=== PATIENT | female | born 1995 | race Caucasian/White ===

== ENCOUNTER 2016-08-12 06:46 | Day surgery (SDC) | payer MEDICAID, OTHER ==
[~2016-08-12 06:46] MED LIST: Clindamycin Phosphate in D5W 600 MG in Premix Bag 1 BAG IV ONE; Lactated Ringers 1,000 ML IV SCH
[2016-08-12] MEDS ORDERED: Bupivacaine 0.25%/EPINEPHrine 1:200,000 10 ML SDV ONE (07:15)
--- NOTE | 2016-08-12 07:20 | PCM.PREANE ---
Preanesthetic Assessment - Anesthesia/Transfusion/Family Hx Anesthesia History: Prior Anesthesia Without Reaction Family History of Anesthesia Reaction: No Transfusion History: No Prior Transfusion(s) Intubation History: Unknown - Review of Systems General: No Symptoms Pulmonary: No Symptoms Cardiovascular: No Symptoms Gastrointestinal: No symptoms Neurological: No Symptoms Other: Reports: None - Physical Assessment Height: 1.7 m Weight: 120.202 kg ASA Class: 2 Mental Status: Alert & Oriented x3 Airway Class: Mallampati = 2 Dentition: Reports: Normal Dentition Thyro-Mental Finger Breadths: 3 Mouth Opening Finger Breadths: 3 ROM/Head Extension: Full Lungs: Clear to auscultation, Normal respiratory effort Cardiovascular: Regular Rate, Regular Rhythm, No Murmurs - Lab Values: Laboratory Last Values Urine HCG, Qual NEGATIVE (NEGATIVE) 08/12/16 06:52 - Allergies Allergies/Adverse Reactions: Allergies Allergy/AdvReac Type Severity Reaction Status Date / Time azithromycin [From Zithromax] Allergy Anaphylactic Verified 08/07/16 11:51 Shock - Blood Blood Available: No - Anesthesia Plan Pre-Op Medication Ordered: None - Acknowledgements Anesthesia Type Planned: General Anesthesia Pt an Appropriate Candidate for the Planned Anesthesia: Yes Alternatives and Risks of Anesthesia Discussed w Pt/Guardian: Yes Pt/Guardian Understands and Agrees with Anesthesia Plan: Yes PreAnesthesia Questionnaire HEENT History: Reports: Other (See Below) Other HEENT History: wears glasses Cardiovascular History: Reports: None Respiratory History: Reports: None Gastrointestinal History: Reports: None Genitourinary History: Reports: None STUDIO ASSOCIATE History: Reports: None Musculoskeletal History: Reports: Fracture Other Musculoskeletal History: hx of fx left wrist Neurological History: Reports: Other (See Below) Other Neuro History: hx of motion sickness Psychiatric History: Reports: None Endocrine/Metabolic History: Reports: Obesity/BMI 30+ Hematologic History: Reports: None Immunologic History: Reports: None Oncologic (Cancer) History: Reports: None Dermatologic History: Reports: Other (See Below) Other Dermatologic History: recurrent hydradenitis suppurativa - Past Surgical History Head Surgeries/Procedures: Reports: None HEENT Surgical History: Reports: None Cardiovascular Surgical History: Reports: None Respiratory Surgical History: Reports: None GI Surgical History: Reports: None Female Surgical History: Reports: None Endocrine Surgical History: Reports: None Neurological Surgical History: Reports: None Musculoskeletal Surgical History: Reports: Carpal Tunnel (right) Oncologic Surgical History: Reports: None Dermatological Surgical History: Reports: None - SUBSTANCE USE Smoking Status *Q: Never Smoker Recreational Drug Use History: No - HOME MEDS Home Medications: Home Meds . [No Known Home Meds] 08/07/16 [History] - CURRENT (IN HOUSE) MEDS Current Meds: Current Medications Lactated Ringer's (Ringers, Lactated) 1,000 mls @ 125 mls/hr IV ASDIRECTED CE Discontinued Medications Bupivacaine HCl/Epinephrine Bitart (Marcaine 0.25%/Epinephrine 1:200,000) Confirm Administered Dose 30 ml .ROUTE .STK-MED ONE Stop: 08/12/16 07:16 Clindamycin Phosphate 600 mg/ (Premix) 50 mls @ 100 mls/hr IV ONETIME ONE Stop: 08/12/16 05:29
[2016-08-12] MEDS ORDERED: Ondansetron 4 MG/2 ML SDV ONE (07:23)
[2016-08-12] MEDS ORDERED: Lidocaine 2% 5 ML SDV ONE (07:23)
[2016-08-12] MEDS ORDERED: Propofol 200 MG/20 ML SDV ONE (07:23)
[2016-08-12] MEDS ORDERED: Midazolam 1 MG/ML 2 ML SDV ONE (07:23)
[2016-08-12] MEDS ORDERED: fentaNYL 250 MCG/5 ML SDV ONE (07:23)
[2016-08-12] MEDS ORDERED: Acetaminophen/oxyCODONE 325-10 MG Tab PO PRN (07:47)
[2016-08-12] MEDS ORDERED: fentaNYL 100 MCG/2 ML SDV IVPUSH PRN (08:06)
--- NOTE | 2016-08-12 09:19 | PCM.OPNOTE ---
- General Post-Op/Procedure Note Date of Surgery/Procedure: 08/12/16 Operative Procedure(s): excisional biopsy recurrent hidradenitis suppurativa L axilla, chest, L labia Findings: see dictation [id number] Pre Op Diagnosis: recurrent hidradenitis suppurativa Post-Op Diagnosis: Same Anesthesia Technique: General LMA Primary Surgeon: Sherif Murguia Pathology: sent Complications: None Condition: Good
--- NOTE | 2016-08-12 10:04 | PCM.POSTAN ---
POST ANESTHESIA ASSESSMENT - MENTAL STATUS Mental Status: oriented - RESPIRATORY Respiratory Status: respiratory rate WNL, airway patent - CARDIOVASCULAR CV Status: pulse rate WNL, blood pressure stable - GASTROINTESTINAL GI Status: no symptoms - PAIN Pain Score: 1 - POST OP HYDRATION Hydration Status: adequate & stable
--- NOTE | 2016-08-12 10:09 | PCM48HPAN ---
Post Anesthesia Note - EVALUATION WITHIN 48HRS OF ANESTHETIC Vital Signs in Normal Range: Yes Patient Participated in Evaluation: Yes Respiratory Function Stable: Yes Airway Patent: Yes Cardiovascular Function Stable: Yes Hydration Status Stable: Yes Pain Control Satisfactory: Yes Nausea and Vomiting Control Satisfactory: Yes Mental Status Recovered: Yes
[2016-08-12] MEDS ORDERED: Ondansetron 4 MG Tab.DIS PO ONE (11:44)
[2016-08-12 12:45] VITALS: BP 152/85
--- NOTE | 2016-08-13 07:41 | OR ---
SURGEON: Sherif Murguia MD DATE OF PROCEDURE: 08/12/2016 PREOPERATIVE DIAGNOSIS: Recurrent hidradenitis suppurativa. POSTOPERATIVE DIAGNOSIS: Recurrent hidradenitis suppurativa. PROCEDURE PERFORMED: Excision and biopsy. COMPLICATIONS: None. FINDINGS: The lateral chest, the medial chest, and the left labia majora has a very little drainage, but they do have drainage but not very horrendous, but axilla has clear purulent drainage. The medial chest is 3 x 1 cm and the lateral chest is 2 x 1 cm and labia majora is 6 x 2.5 cm, but axilla is 11 x 3 cm skin loss. DESCRIPTION OF PROCEDURE: The patient was taken to the operating room and placed in supine position. Upon induction of general endotracheal anesthesia, the patient's several areas were prepped and draped in a sterile fashion. The chest area has a medial and the lateral area that has disease and the left labia majora has disease and the left axilla has disease. The right axilla, we will leave it alone for the time being as the patient need to use at least one hand to do things. A time-out was being called. The patient was identified, procedure identified, and antibiotic given, and procedure was then started. Attention, 1st go to the medial chest area, it has disease, and it does have drainage but minimal. Area was excised 3 x 1 cm and because of the breast, we are pulling the surgical site in the R direction and makes the wound much much bigger, decided to put 2 stitches of 2-0 Ethilon to close it and then put a Wilton on it and the lateral chest is less problematic and posterior to about 2.1 cm skin loss and then I used one stitch of 2-0 Ethilon, closed it, and Niki to it, and then the third one is the left labia majora has very little drainage, clearly disease, and again is excised and Wilton it and closed it with one stitch of 2-0 Ethilon. Attention now turned to the left axilla, which is very extensive disease with active draining pus and the area was removed 11 x 3 cm and the area was packed with iodoform gauze 0.5 inch and followed with appropriate dressing. The patient was awakened, extubated, and transferred to recovery room in hemodynamically stable condition. Sponge count was correct prior to closing. The patient tolerated the procedure well. There were no intraoperative complications. Dr. Murguia was present throughout the procedure. CONNIE / SYLVAIN /[id number] MTDD
== END 2016-08-12 12:12 | disposition home or self-care (01) ==
LOC: MW.SDS 06:46
PROVIDERS: ATTEND Surgery
DX: L72.0 Epidermal cyst (principal); L98.499 Non-pressure chronic ulcer of skin of other sites with unspecified severity; I96 Gangrene, not elsewhere classified; L90.5 Scar conditions and fibrosis of skin; Z88.1 Allergy status to other antibiotic agents; Z98.890 Other specified postprocedural states; Z78.9 Other specified health status; E66.9 Obesity, unspecified
CPT/HCPCS: 11406; 81025; 87070; 87075; 87205; A9270; J2250; J2405; J3010; J7120; 00400; 87077; 87186; 88305; J2704

== ENCOUNTER 2016-08-14 22:35 | Emergency (ER) | payer MEDICAID, OTHER ==
[2016-08-14] MEDS ORDERED: HYDROmorphone 1 MG/ML Syringe ONE (23:17)
[2016-08-14] MEDS ORDERED: HYDROmorphone 2 MG/ML Syringe IVPUSH STA (23:21)
[2016-08-14] MEDS ORDERED: HYDROmorphone 2 MG/ML Syringe IM STA (23:25)
--- NOTE | 2016-08-14 23:34 | EDM.PDOC ---
ED HPI GENERAL MEDICAL PROBLEM - General Chief Complaint: General Stated Complaint: PAIN Time Seen by Provider: 08/14/16 22:41 - History of Present Illness INITIAL COMMENTS - FREE TEXT/NARRATIVE: HISTORY AND PHYSICAL: History of present illness: Patient's 20-year-old female is status surgery for left superative hidradenitis who presents with a concern of wound check and packing change she states has been quite uncomfortable she does have a doctor appointment tomorrow she is on antibiotics in the form of clindamycin and Vicodin no fever chills nausea vomiting or other complaints Review of systems: As per history of present illness and below otherwise all systems reviewed and negative. Past medical history: As per history of present illness and as reviewed below otherwise noncontributory. Surgical history: As per history of present illness and as reviewed below otherwise noncontributory. Social history: No reported history of drug or alcohol abuse. Family history: As per history of present illness and as reviewed below otherwise noncontributory. Physical exam: HEENT: Atraumatic, normocephalic, pupils reactive, negative for conjunctival pallor or scleral icterus, mucous membranes moist, throat clear, neck supple, nontender, trachea midline. Lungs: Clear to auscultation, breath sounds equal bilaterally, chest nontender. Heart: S1S2, regular, negative for clicks, rubs, or JVD. Abdomen: Soft, nondistended, nontender. Negative for masses or hepatosplenomegaly. Negative for costovertebral tenderness. Pelvis: Stable nontender. Genitourinary: Deferred. Rectal: Deferred. Extremities: Left axilla has with packing partially removed no significant discharge erythema mild tenderness to palpation. Neuro: Awake, alert, oriented. Cranial nerves II through XII unremarkable. Cerebellum unremarkable. Motor and sensory unremarkable throughout. Exam nonfocal. Diagnostics: None Therapeutics: #1 Dilaudid 1 mg IM #2 packing change with iodoform gauze Impression: #1 wound check with wound care and packing change Definitive disposition and diagnosis as appropriate pending reevaluation and review of above. Left Chest Pain Score (Numeric/FACES): 10 - Related Data Allergies Allergy/AdvReac Type Severity Reaction Status Date / Time azithromycin [From Zithromax] Allergy Anaphylactic Verified 08/14/16 22:53 Shock Home Meds: Home Meds Clindamycin HCl 08/14/16 [History] Hydrocodone/Acetaminophen [Vicodin 5-300 mg Tablet] 08/14/16 [History] Ondansetron HCl [Zofran] 08/14/16 [History] Past Medical History HEENT History: Reports: Other (See Below) Other HEENT History: wears glasses Cardiovascular History: Reports: None Respiratory History: Reports: None Gastrointestinal History: Reports: None Genitourinary History: Reports: None MANAGEMENT AND BUDGET ANALYST History: Reports: None Musculoskeletal History: Reports: Fracture Other Musculoskeletal History: hx of fx left wrist Neurological History: Reports: Other (See Below) Other Neuro History: hx of motion sickness Psychiatric History: Reports: Anxiety, Depression Endocrine/Metabolic History: Reports: Obesity/BMI 30+ Hematologic History: Reports: None Immunologic History: Reports: None Oncologic (Cancer) History: Reports: None Dermatologic History: Reports: Other (See Below) Other Dermatologic History: recurrent hydradenitis suppurativa - Past Surgical History Head Surgeries/Procedures: Reports: None HEENT Surgical History: Reports: None Cardiovascular Surgical History: Reports: None Respiratory Surgical History: Reports: None GI Surgical History: Reports: None Female Surgical History: Reports: None Endocrine Surgical History: Reports: None Neurological Surgical History: Reports: None Musculoskeletal Surgical History: Reports: Carpal Tunnel Oncologic Surgical History: Reports: None Dermatological Surgical History: Reports: Other (See Below) Social & Family History - Family History Family Medical History: Noncontributory - Tobacco Use Smoking Status *Q: Never Smoker - Caffeine Use Caffeine Use: Reports: Coffee - Recreational Drug Use Recreational Drug Use: No Drug Use in Last 12 Months: No ED ROS GENERAL - Review of Systems Review Of Systems: ROS reveals no pertinent complaints other than HPI. ED EXAM, GENERAL - Physical Exam Exam: See Below (See dictation) Course - Vital Signs Last Recorded V/S: Last Vital Signs Temp 38.1 C 08/14/16 22:53 Pulse 125 H 08/14/16 22:53 Resp 18 08/14/16 22:53 BP 152/92 H 08/14/16 22:53 Pulse Ox 97 08/14/16 22:53 - Orders/Labs/Meds Meds: Medications Discontinued Medications Generic Name Dose Route Start Last Admin Trade Name Freq PRN Reason Stop Dose Admin Hydromorphone HCl Confirm 08/14/16 23:17 08/14/16 23:26 Dilaudid Administered 08/14/16 23:18 Not Given Dose 1 mg .ROUTE .STK-MED ONE Hydromorphone HCl 1 mg 08/14/16 23:21 08/14/16 23:27 Dilaudid IVPUSH 08/14/16 23:22 Not Given NOW STA Hydromorphone HCl 1 mg 08/14/16 23:25 08/14/16 23:28 Dilaudid IM 08/14/16 23:26 1 mg NOW STA Administration Departure - Departure Time of Disposition: 23:33 Disposition: Home, Self-Care 01 Condition: good Clinical Impression: Encounter for wound re-check, Change or removal of wound packing - Discharge Information Forms: ED Department Discharge Additional Instructions: The following information is given to patients seen in the emergency department who are being discharged to home. This information is to outline your options for follow-up care. We provide all patients seen in our emergency department with a follow-up referral. The need for follow-up, as well as the timing and circumstances, are variable depending upon the specifics of your emergency department visit. If you don't have a primary care physician on staff, we will provide you with a referral. We always advise you to contact your personal physician following an emergency department visit to inform them of the circumstance of the visit and for follow-up with them and/or the need for any referrals to a consulting specialist. The emergency department will also refer you to a specialist when appropriate. This referral assures that you have the opportunity for followup care with a specialist. All of these measure are taken in an effort to provide you with optimal care, which includes your followup. Under all circumstances we always encourage you to contact your private physician who remains a resource for coordinating your care. When calling for followup care, please make the office aware that this follow-up is from your recent emergency room visit. If for any reason you are refused follow-up, please contact the [facility] emergency department at and asked to speak to the emergency department charge nurse. Keep scheduled appointment Gen. surgery tomorrow packing changes as discussed antibiotics and pain medicine as prescribed return as needed
[2016-08-15 00:11] VITALS: BP 117/72
== END 2016-08-15 00:15 | disposition home or self-care (01) ==
LOC: MW.ED 22:35
DX: Z48.01 Encounter for change or removal of surgical wound dressing (principal); F41.9 Anxiety disorder, unspecified; F32.9 Major depressive disorder, single episode, unspecified; E66.9 Obesity, unspecified; Z88.1 Allergy status to other antibiotic agents; Z68.41 Body mass index [BMI] 40.0-44.9, adult
CPT/HCPCS: 96372; 99283; J1170